=== PATIENT | male | born 1950 | race Caucasian/White ===

== ENCOUNTER → 2020-06-15 10:32 | Outpatient (CLI) | payer BC, MEDICARE, SELFPAY ==
--- NOTE | ~2020-06-15 | US_ITS ---
EXAMINATION: US aorta [facility] DATE: 06/15/2020 10:50 INDICATION: Abdominal aortic aneurysm screening TECHNIQUE: Grayscale, color Doppler, and pulsed Doppler images of the aorta and common iliac arteries were obtained. COMPARISON: None. FINDINGS: The proximal aorta measures 2.4 similar in maximal AP diameter. The mid aorta measures 1.9 cm. The di stal aorta measures 1.7 cm. The right common iliac artery measures 10 mm. The left common iliac arter y measures 12 mm. IMPRESSION: 1. Normal caliber abdominal aorta. Reviewed, dictated and finalized at location A. DIVER
== END ==
PROVIDERS: PCP Family Medicine; Visit Provider Family Medicine
DX: Z13.6 Encounter for screening for cardiovascular disorders (principal)
CPT/HCPCS: 76706

== ENCOUNTER 2020-11-11 10:42 | Outpatient (CLI) | payer BC, MEDICARE, SELFPAY ==
--- NOTE | ~2020-11-11 | XR_ITS ---
XR lumbar spine min 4V DATE: 11/11/2020 11:34 INDICATION: Arthropathic psoriasis TECHNIQUE: AP, lateral, bilateral oblique and coned lateral lumbosacral views COMPARISON: None FINDINGS: Diffuse osteopenia. Prominent anterior bridging osteophytes in the lower thoracic spine. Normal alignment of the lumbar vertebrae. No fracture or bone destruction or spondylolisthesis. Lumba r and lumbosacral spaces are well preserved. There is mild degenerative spurring of lumbar spine. Degenerative changes apophyseal joints with associated grade 1 anterolisthesis at L4-5. No spondyloly sis or spondylolisthesis is noted otherwise. The sacroiliac joints are unremarkable. IMPRESSION: Degenerative changes of the apophyseal joints with associated grade 1 anterolisthesis at L4-5 Diffuse osteopenia Mild degenerative spurring of the lumbar spine Reviewed, dictated and finalized at location A.
--- NOTE | ~2020-11-11 | XR_ITS ---
XR sacroiliac joints min 3V DATE: 11/11/2020 11:34 INDICATION: Arthropathic psoriasis TECHNIQUE: Frontal and bilateral oblique views COMPARISON: None FINDINGS: Diffuse osteopenia. The pubic symphysis and sacroiliac joints appear intact. No erosive change or ankylosis, fracture, di slocation or significant degenerative changes evident at the sacroiliac joints. IMPRESSION: Osteopenia; otherwise negative Reviewed, dictated and finalized at Location A. Reviewed, dictated and finalized at location A.
--- NOTE | ~2020-11-11 | XR_ITS ---
EXAMINATION: XR hand BI arthritis min 3V EXAM DATE: 11/11/2020 11:34 INDICATION: M19.90 - Unspecified osteoarthritis, unspecified site. TECHNIQUE: Right hand frontal, lateral and oblique projections obtained and reviewed. Left hand fron chris, lateral and oblique projections obtained and reviewed. Catchers projection of both hands. There is no prior study for comparison. FINDINGS: Right hand: There is moderate 1st carpometacarpal primary osteoarthritis. There are no bony erosions identified. There are no acute fractures identified. No radiopaque foreign bodies identified. The s oft tissue is unremarkable. Left hand: There is mild to moderate 1st carpometacarpal primary osteoarthritis. There are no bony er osions identified. There are no acute fractures identified. No radiopaque foreign bodies identified. The soft tissue is unremarkable. 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 Reviewed, dictated and finalized at location A.
== END 2020-11-11 10:43 ==
PROVIDERS: PCP Family Medicine; Visit Provider Internal Medicine
DX: L40.50 Arthropathic psoriasis, unspecified (principal); M19.90 Unspecified osteoarthritis, unspecified site; M85.88 Other specified disorders of bone density and structure, other site; M19.041 Primary osteoarthritis, right hand; M19.042 Primary osteoarthritis, left hand
CPT/HCPCS: 72110; 72202; 73130

== ENCOUNTER → 2021-07-20 11:50 | Outpatient (CLI) | payer MEDICARE, SELFPAY ==
--- NOTE | ~2021-07-20 | XR_ITS ---
XR lumbar spine min 4V DATE: 07/20/2021 12:22 INDICATION: Arthropathic psoriasis TECHNIQUE: AP, lateral, bilateral oblique views, coned lateral lumbosacral view COMPARISON: 11/11/2020 lumbar spine FINDINGS: Diffuse osteopenia. There is prominent apophyseal joint degenerative change, particularly at the apophyseal joints at L4- 5 and L5-S1, with associated stable grade 1 anterolisthesis at L4-5. No fracture or bone destruction is evident. No spondylolysis. The included lower thoracic and lumbar pedicles are intact. There is mild to moderate degenerative spurring of the lumbar spine. The sacroiliac joints are normal. IMPRESSION: Diffuse osteopenia. Mild to moderate degenerative change of the lumbar spine Reviewed, dictated and finalized at location A.
== END ==
PROVIDERS: Visit Provider Internal Medicine
DX: M47.817 Spondylosis without myelopathy or radiculopathy, lumbosacral region (principal); L40.50 Arthropathic psoriasis, unspecified
CPT/HCPCS: 72110

== ENCOUNTER 2022-06-29 13:46 | Outpatient (CLI) | payer MEDICARE, SELFPAY ==
--- NOTE | ~2022-06-29 | CT_ITS ---
EXAMINATION: CT lung screening DATE: 06/29/2022 14:02 INDICATION: lung ca screening TECHNIQUE: Computed tomography (CT) of the chest was performed without intravenous contrast. Addition al 3D reconstructions utilizing coronal maximum intensity projection (MIP) were performed. Automated exposure control and iterative reconstruction technique were employed. The dose-length product was 53 7.07 mGy-cm. COMPARISON: None FINDINGS: No pulmonary nodules, pneumonia, pulmonary edema or other pulmonary infiltrates. No pleural effusion. Heart size is normal. Atherosclerotic coronary artery calcifications and aortic valve calcific a marizol n. No pericardial effusion. Thoracic aorta is normal in caliber. No pathologically enlarged thoracic lymphadenopathy. Visualized upper abdomen is unremarkable. There are bridging osteophytes at multiple levels in the spine, consistent with diffuse idiopathic skeletal hyperostosis (DISH). IMPRESSION: 1. Lung-RADS category 1: Negative. Continue annual screening with noncontrast low-dose chest CT in 12 months. Reviewed, dictated and finalized at location A. [employer] IMPRESSION: 1. Lung-RADS category 1: Negative. Continue annual screening with noncontrast l ow-dose chest CT in 12 months.
== END 2022-06-29 13:47 | disposition home or self-care (01) ==
LOC: ANHIMG 13:48
PROVIDERS: PCP Family Medicine; Visit Provider Family Medicine
DX: Z12.2 Encounter for screening for malignant neoplasm of respiratory organs (principal); Z87.891 Personal history of nicotine dependence
CPT/HCPCS: 71271

== ENCOUNTER 2024-02-09 10:11 | Day surgery (SDC) | payer MEDICARE, SELFPAY ==
[2024-02-09] VITALS (10 sets, daily range): BP systolic 92–159; BP diastolic 52–79; PULSE 67–111; RESP 13–18; TEMP 36.3–36.7; O2SAT 98–100
--- NOTE | ~2024-02-09 | CT_ITS ---
CT of the Pelvis: Indication: Perianal abscess Technique: 2.5 mm axial scans were obtained through the pelvis following intravenous administration of 100 cc of Omnipaque 350. Dose reduction technique was used on this scan by utilizing automated exp osure control and iterative reconstruction technique. The dose-length product (DLP) was 704.13 mGy-cm . Findings: Urinary bladder unremarkable. Prostate gland is enlarged. No pelvic mass evident. No ascite s. No hernia identified. No lymphadenopathy identified. There is a 4.9 x 3.1 x 3.9 cm peripherally enhancing fluid collection superficially located at the le ft perianal region, compatible left-sided perianal abscess. Impression: 4.9 x 3.1 x 3.90 left perianal abscess. Reviewed, dictated and finalized at [facility]. Impression: 4.9 x 3.1 x 3.90 left perianal abscess.
--- NOTE | 2024-02-09 10:18 | ED.GENADULT ---
HPI - General Adult General Chief complaint: Skin/Abscess/Foreign Body Stated complaint: rectal abscess Time Seen by Provider: 02/09/24 10:17 Source: patient Mode of arrival: ambulatory Limitations: no limitations History of Present Illness HPI narrative: 73 years old white male drove himself to the emergency room complaining of perianal abscess for the last few days, causing pain and discomfort. He denies any fever, chills, nausea, vomiting, abdominal pain. Patient had similar symptoms 10 years ago, required incision and drainage and packing. Patient is telling me that he been draining from the same spot at lease every 2 years for few days then spontaneously improved. And was told this is normal. History of hyperlipidemia, he does not smoke or drink or use drugs, he does not take anti-platelet or anticoagulant medication. Related Data Home Medications Medication Instructions Recorded Confirmed omeprazole magnesium 20 mg 20 mg PO DAILY 06/01/19 06/19/23 tablet,delayed release (Prilosec OTC) tirzepatide (weight loss) 2.5 2.5 mg subcut WEEKLY 06/19/23 06/19/23 mg/0.5 mL subcutaneous pen injector (Zepbound) Allergies Allergy/AdvReac Type Severity Reaction Status Date / Time No Known Allergies Allergy Verified 06/19/23 09:20 Review of Systems Review of Systems: All systems reviewed & are unremarkable except as noted in HPI and below PMFSH Past Medical History Medical History Encounter for screening for other viral diseases GERD (gastroesophageal reflux disease) HLD (hyperlipidemia) IFG (impaired fasting glucose) Psoriatic arthritis (~2015) Scalp psoriasis (~2015) Family History Family History Father Bladder cancer Mother Hypertension Social History Social History Smoking status: Never smoker Tobacco type: e-cigarettes/vaping Smoking end date: 12/21/18 Alcohol intake: current Drinks per week: 4 Substance use: never Substance use type: does not use Living arrangements: with family Occupation/Education: retired Gender identity (if verbalized by the patient): Male Sexual Orientation (if Verbalized by the Patient): Straight or Heterosexual Exam Narrative: General appearance: Well-developed, well-nourished Skin: Normal color Chest and respiratory: Airway patent, no respiratory distress, no accessory muscle use Heart: Regular rate/rhythm Abdomen: Soft, nontender, no organomegaly, quiet bowel sounds Large mass at the perianal area, positive fluctuation, erythema, tenderness Neurologic: Alert and oriented ?3, MANAGER PHOTO is normal as tested, no gross motor deficit Course Consultations Consultation #1: DR BESS PATIENT TO GO TO OR FOR I AND D Date: 02/09/24 Time: 12:55 Vital Signs Vital signs: Vital Signs Temperature 36.7 C 02/09/24 10:40 Pulse Rate 111 H 02/09/24 10:40 Respiratory Rate 18 02/09/24 10:40 Blood Pressure 107/67 02/09/24 10:40 Pulse Oximetry 100 02/09/24 10:40 Oxygen Delivery Room Air 02/09/24 10:40 Temperature 36.7 C 02/09/24 10:40 Pulse Rate 93 02/09/24 12:44 Respiratory Rate 18 02/09/24 12:44 Blood Pressure 118/68 02/09/24 12:44 Pulse Oximetry 100 02/09/24 12:44 Oxygen Delivery Room Air 02/09/24 10:40 Medical Decision Making [facility] Narrative Medical decision making narrative: patient presents with perianal abscess Vital signs Showing heart rate of 111 physical examination show perianal mass, Differential diagnosis include abscess, cyst, tumor Blood workup s
[2024-02-09 10:38] LABS: Basophils Percent Auto 0.3 % (0.2-1.2); Eosinophils Absolute Auto 0.1 K/mm3 (0-0.3); Eosinophils Percent Auto 0.6 % (0-4.4); Hematocrit 37.3 % (42.0-52.0); Hemoglobin 12.8 g/dL (14.0-18.0); Immature Granulocyte Absolute 0.03 K/mm3 (0.00-0.031); Immature Granulocyte Percent A 0.3 % (0-0.5); Lymphocytes Absolute Auto 1.85 K/mm3 (0.9-3.2); Lymphocytes Percent Auto 19.7 % (18.3-44.2); Mean Corpuscular HGB Conc 34.3 g/dl (32-36); Mean Corpuscular Hemoglobin 31.4 pg (26-34); Mean Corpuscular Volume 91.4 fl (80-100); Mean Platelet Volume 11.5 fl (7.4-10.4); Monocytes Absolute Auto 1.1 K/mm3 (0.1-0.6); Monocytes Percent Auto 11.8 % (2.6-8.5); Neutrophils Absolute Auto 6.3 K/mm3 (1.3-6.7); Neutrophils Percent Auto 67.3 % (45.5-73.1); Platelet Count Result 292 k/mm3 (150-375); Red Blood Count 4.08 M/mm3 (4.6-6.20); Red Cell Distribution Width 13.4 % (11.5-14.5); White Blood Count 9.4 K/mm3 (4.5-10.0)
[2024-02-09] MEDS: PIPERACILLN/TAZ 3.375GM/NS50ML 3.375 GM/50 ML BAG IVPB (10:43)
[2024-02-09] MEDS: SODIUM CHLORIDE 0.9% IV 1,000 ML 999 ML IV CONT (10:44)
[2024-02-09 11:15] LABS: Alanine Aminotransferase 16 U/L (6-50); Albumin Level 4.2 g/dL (3.5-5.1); Alkaline Phosphatase 83 U/L (38-126); Anion Gap 9 mmol/L (4-12); Aspartate Amino Transferase 25 U/L (17-59); Bilirubin,Total 1.3 mg/dL (0.2-1.3); Blood Urea Nitrogen 20 mg/dL (9-20); Calcium 9.6 mg/dL (8.4-10.2); Carbon Dioxide 26 mmol/L (22-30); Chloride 101 mmol/L (98-107); Estimated CRCL calculation 61 ml/min; Estimated Glomerular Filt Rate > 60; Glucose 104 mg/dL (65-110); Potassium 4.8 mmol/L (3.4-5.0); Sodium 136 mmol/L (137-145)
[2024-02-09] MEDS: ONDANSETRON INJ 4 MG/2 ML VIAL IV PUSH (12:43)
[2024-02-09] MEDS: MORPHINE SULFATE (*CRX) 4 MG/ML INJ IV PUSH (12:44)
--- NOTE | 2024-02-09 13:09 | PM.SD2 ---
Same Day Admit/Disch: HPI History of Present Illness Chief complaint: Perirectal abscess with fistula Narrative: Sanjay King is a 73 year old male who noticed a lump in the perianal area while showering about 3 days ago. It was not bothersome and he assumed it would go away. He was sitting at a soccer game yesterday and did notice more soreness. Then early this morning he noted it enlarged significantly and abruptly with increasing pain. There was no drainage. There were no fever or chills. He has a history of a perirectal abscess which was incised and drained in an emergency room about 8 years ago. He recalls it was packed and eventually went on to heal. He did notice that there was been some clear to cloudy drainage from a small area on the buttocks skin near the rectum may be once every couple of years since then. He was seen in the emergency room and has a large left anterior recurrent perirectal abscess. With his history, it is highly likely he does have a fistula in ANO as the cause. He is taken to surgery now for incision and drainage and possible anal fistulotomy. [facility] Past Medical History Medical History Encounter for screening for other viral diseases GERD (gastroesophageal reflux disease) HLD (hyperlipidemia) IFG (impaired fasting glucose) Psoriatic arthritis (~2015) Scalp psoriasis (~2015) Family History Family History Father Bladder cancer Mother Hypertension Social History Social History Smoking status: Never smoker Tobacco type: e-cigarettes/vaping Smoking end date: 12/21/18 Alcohol intake: current Drinks per week: 4 Substance use: never Substance use type: does not use Living arrangements: with family Occupation/Education: retired Gender identity (if verbalized by the patient): Male Sexual Orientation (if Verbalized by the Patient): Straight or Heterosexual Same Day Admit/Disch: Med Pre-admit Medications Home Medications Medication Instructions Recorded Confirmed Type omeprazole magnesium 20 mg 20 mg PO DAILY 06/01/19 06/19/23 History tablet,delayed release (Prilosec OTC) triamcinolone acetonide 0.025 % 1 applic topical DAILY PRN apply 06/04/22 06/19/23 Rx topical cream to psoriatic patches as needed #80 grams clobetasol 0.05 % scalp solution 1 applic topical DAILY PRN apply 09/24/22 06/19/23 Rx to scalp daily as needed #50 mL tirzepatide (weight loss) 15 15 mg (0.5 mL) subcut WEEKLY #2 mL 04/30/23 06/19/23 Rx mg/0.5 mL subcutaneous pen injector tirzepatide (weight loss) 2.5 2.5 mg subcut WEEKLY 06/19/23 06/19/23 History mg/0.5 mL subcutaneous pen injector (Zepbound) tirzepatide (weight loss) 5 mg/0.5 5 mg (0.5 mL) subcut WEEKLY #2 mL 06/19/23 06/19/23 Rx mL subcutaneous pen injector (Zepbound) methylprednisolone 4 mg tablets in See Rx Instructions PO PER PKG DIR 12/20/23 Rx a dose pack (Medrol (Simon)) #21 ea atorvastatin 20 mg tablet (Lipitor) 20 mg PO QHS #90 tabs 01/17/24 Rx ibuprofen 600 mg tablet 600 mg PO Q6H PRN pain #14 tabs 02/09/24 Rx oxycodone-acetaminophen 5 mg-325 0.5 - 1 tablet PO Q6H PRN pain #20 02/09/24 Rx mg tablet tabs Review of Systems Review of Systems All systems reviewed & are unremarkable except as noted in HPI and below (HPI) Constitutional Constitutional: Reports as per HPI, Denies chills and Denies night sweats Integumentary/Breasts Comments: History of psoriatic arthritis Endocrine Comments: takes tirzepatide for weight loss. Exam Const: General: comfortable, no acute distress, alert and awake HENMT: Head: normocephalic and atraumatic Mouth: Yes Normal oral and palatal mucosa present Eyes: Conjunctivae: conjunctivae normal Pupils: Equal, round and reactive pupils present EOM: EOMs intact bilaterally Nec
--- NOTE | 2024-02-09 13:22 | WPDHPUPDATE1 ---
History and Physical Update Update Date/Time: 02/09/24 13:22 History and Physical has been reviewed, including an updated exam of the patient. There are NO changes in the patient's condition. Risks, benefits, and alternatives have been discussed and questions answered. Patient agrees to proceed with procedure.
--- NOTE | 2024-02-09 14:00 | WPDANESEPP ---
Anes - Eval Pre Procedure Procedure: Operation Date: 02/09/24 13:30 Proposed Procedures p I&D Roz-Rectal Abscess - Lion Judd MD Date/Time: 02/09/24 14:00 Pre Op Diagnosis: Perirectal abscess with fistula Patient Data Age: 73 Gender: M Height: 1.88 m Weight: 91 kg Last Vital Signs Temp 36.7 C 02/09/24 10:40 Pulse 93 02/09/24 12:44 Resp 18 02/09/24 12:44 BP 118/68 02/09/24 12:44 Pulse Ox 100 02/09/24 12:44 O2 Del Method Room Air 02/09/24 10:40 Allergies Allergy/AdvReac Type Severity Reaction Status Date / Time No Known Allergies Allergy Verified 06/19/23 09:20 Home Medications Medication Instructions Recorded Confirmed Type omeprazole magnesium 20 mg 20 mg PO DAILY 06/01/19 06/19/23 History tablet,delayed release (Prilosec OTC) triamcinolone acetonide 0.025 % 1 applic topical DAILY PRN apply 06/04/22 06/19/23 Rx topical cream to psoriatic patches as needed #80 grams clobetasol 0.05 % scalp solution 1 applic topical DAILY PRN apply 09/24/22 06/19/23 Rx to scalp daily as needed #50 mL tirzepatide (weight loss) 15 15 mg (0.5 mL) subcut WEEKLY #2 mL 04/30/23 06/19/23 Rx mg/0.5 mL subcutaneous pen injector tirzepatide (weight loss) 2.5 2.5 mg subcut WEEKLY 06/19/23 06/19/23 History mg/0.5 mL subcutaneous pen injector (Zepbound) tirzepatide (weight loss) 5 mg/0.5 5 mg (0.5 mL) subcut WEEKLY #2 mL 06/19/23 06/19/23 Rx mL subcutaneous pen injector (Zepbound) methylprednisolone 4 mg tablets in See Rx Instructions PO PER PKG DIR 12/20/23 Rx a dose pack (Medrol (Simon)) #21 ea atorvastatin 20 mg tablet (Lipitor) 20 mg PO QHS #90 tabs 01/17/24 Rx Laboratory Tests 02/09/24 02/09/24 10:32 10:57 WBC 9.4 K/mm3 (4.5-10.0) RBC 4.08 L M/mm3 (4.6-6.20) Hgb 12.8 L g/dL (14.0-18.0) Hct 37.3 L % (42.0-52.0) MCV 91.4 fl (80-100) MCH 31.4 pg (26-34) MCHC 34.3 g/dl (32-36) RDW 13.4 % (11.5-14.5) Plt Count 292 k/mm3 (150-375) MPV 11.5 H fl (7.4-10.4) Immature Gran % (Auto) 0.3 % (0-0.5) Neut % (Auto) 67.3 % (45.5-73.1) Lymph % (Auto) 19.7 % (18.3-44.2) [place] % (Auto) 11.8 H % (2.6-8.5) Eos % (Auto) 0.6 % (0-4.4) Baso % (Auto) 0.3 % (0.2-1.2) Lymph # (Auto) 1.85 K/mm3 (0.9-3.2) [place] # (Auto) 1.1 H K/mm3 (0.1-0.6) Eos # (Auto) 0.1 K/mm3 (0-0.3) Baso # (Auto) 0.0 K/mm3 (0.0-0.1) Abs Immat Gran (auto) 0.03 K/mm3 (0.00-0.031) Absolute Neuts (auto) 6.3 K/mm3 (1.3-6.7) Absolute Nucleated RBC 0.000 K/mm3 (0.0-0.012) Nucleated RBC % 0.0 % (0.0-0.2) PT 13.0 Seconds (11.1-14.7) INR 1.0 Sodium 136 L mmol/L (137-145) Potassium 4.8 mmol/L (3.4-5.0) Chloride 101 mmol/L (98-107) Carbon Dioxide 26 mmol/L (22-30) Anion Gap 9 mmol/L (4-12) BUN 20 mg/dL (9-20) Creatinine 1.10 mg/dL (0.7-1.3) Estim Creat Clear Calc 61 ml/min Estimated GFR > 60 (59 - ) Glucose 104 mg/dL (65-110) Calcium 9.6 mg/dL (8.4-10.2) Total Bilirubin 1.3 mg/dL (0.2-1.3) AST 25 U/L (17-59) ALT 16 U/L (6-50) Alkaline Phosphatase 83 U/L (38-126) Total Protein 8.0 g/dL (6.3-8.2) Albumin 4.2 g/dL (3.5-5.1) Patient hx anesthesia problems: none Family hx anesthesia problems: none Results Review: All pre-operative results and documents have been reviewed as part of the pre-operative evaluation. [facility] Past Medical History Medical History Encounter for screening for other viral diseases GERD (gastroesophageal reflux disease) HLD (hyperlipidemia) IFG (impaired fasting glucose) Psoriatic arthritis (~2015) Scalp psoriasis (~2015) Family History Family Histo
--- NOTE | 2024-02-09 14:02 | P.PNAN_ITS ---
Anes - Eval Final PreProcedure Day of Procedure 02/09/24 14:02 Patient weight: overweight Heart: regular rate and rhythm Lungs: clear to auscultation Airway: Mallampati scale class III Neurological: alert and oriented Last oral intake: >/= 8 hours ASA classification: III Emergent: yes Anesthetic plan: proceed Anesthesia type and monitoring: general ETT and standard monitoring Results Review: All pre-operative results and documents have been reviewed as part of the pre- operative evaluation. Informed Consent: The patient's anesthetic plan and its attendant risks and benefits were discussed with the patient/family/POA. Questions were solicited and answers provided to the satisfaction of the patient/family/POA.
[2024-02-09] MEDS: LACTATED RINGERS 1,000 ML 30 ML IV CONT (14:58)
--- NOTE | 2024-02-09 15:40 | P.OP_ITS ---
Procedure Note - Detailed Date of Procedure 02/09/24 Pre-op Diagnosis Perirectal abscess with fistula Post-op Diagnosis Same Procedure Performed Incision and drainage of left anterior quadrant perirectal abscess, placement of seton Surgeon Lion Judd MD Flight Attendant Tere Morales [facility] Anesthesia General Indications Patient had a large perirectal abscess that was incised and drained about 10 years ago. He has had 0 purulent drainage once every year or 2 from the area of the scar on his buttocks since that time. Early this morning he had pain and greatly increased swelling in the same area as the original perirectal abscess occurred. There is scar tissue from the incision and drainage of the original abscess which seems to verify it is in the same position. It is suspected that he has a fistula in ANO as well as a recurrent perirectal abscess. He is taken to surgery now for incision and drainage of the perirectal abscess and possibly an anal fistulotomy. Findings This was a large abscess. It tracked to the dentate line it in the anterior midline where an internal opening was noted. There was a lot of heavy scar tissue between the incision for abscess drainage and the internal opening. It was difficult to ascertain in the acute setting how much sphincter muscle was involved. Rather than do primary fistulotomy, I placed a seton with plans to perform the fistulotomy later. Description of Procedure Patient was taken to surgery and induced into general anesthesia. He was placed in prone nakul-knife position. The buttocks were taped apart. Prep and drape was carried out. I placed a Hill-Navarro anoscope in the rectum and then applied some pressure to the fluctuant areas of the abscess. I could not demonstrate any purulent fluid coming from an opening at the dentate line. I then made a cruciate incision over the most fluctuant area of the abscess. Purulent material readily drained. I opened this a bit further and then was able to suction out the interior of the abscess. Once the purulent fluid had been suctioned away, I used a rectal probe and found that the abscess did communicate with an internal opening in the midline. I then used a curved clamp and passed a red vessel loop from the internal opening out the cruciate incision. I was able to place my finger in the abscess cavity and palpate the inside of the abscess. There was a lot of scar tissue between the skin and the internal opening. I was concerned that fistulotomy at this point may cause more sphincter damage then wanted. I went ahead and tied the red vessel loop to itself to provide a loose in napaimute mint of the fistula. The abscess wound was pretty dry at this point but I did go ahead and loosely pack it with 1 in iodoform Nu Gauze. The rectal area was then dressed was Xeroform gauze, multiple fluffs, and Medipore tape. The patient was returned to a supine position, awakened, and taken to recovery in good condition. Sponge and needle counts were correct x2. Implants Red vessel loop used as a seton for the fistula tract Estimated Blood Loss -10 Drains Yes (Seton) Packing Yes (Abscess packed with 1 in iodoform Nu Gauze) Pathology None sent Complications None Condition Stable Disposition PACU [facility] Billing Surgery - Charge Forward: Surgery Billing (Incision and drainage of perirectal abscess, placement of seton)
[2024-02-09] MEDS: oxyCODONE HCL (*CRX) 5 MG TAB IR PO (15:52)
== END 2024-02-09 16:40 | disposition home or self-care (01) ==
LOC: ANHED 12:55 → ANHSURGERY 12:59
PROVIDERS: Emergency Provider Emergency Medicine; PCP Family Medicine; Visit Provider Surgery
PROC: (CPT 46040; principal; 2024-02-09 13:30)
DX: K61.0 Anal abscess (principal); G89.18 Other acute postprocedural pain; K21.9 Gastro-esophageal reflux disease without esophagitis; E78.5 Hyperlipidemia, unspecified; Z79.85 Long-term (current) use of injectable non-insulin antidiabetic drugs; Z87.891 Personal history of nicotine dependence; Z80.52 Family history of malignant neoplasm of bladder
CPT/HCPCS: 46020; 36415; 72193; 80053; 85025; 85610; 96365; 96375; 99285; A9270; J0330; J1100; J2270; J2405; J2543; J2704; J3010; J7030; J7120; Q9967

== ENCOUNTER 2024-03-18 09:56 | Outpatient (CLI) | payer MEDICARE, SELFPAY ==
--- NOTE | 2024-03-18 10:07 | ECG_ITS ---
Test Date: 2024-03-18 10:21:17 Measurements Intervals [place] Rate: 83 P: 49 NH: 166 QRS: 22 QRSD: 90 T: 43 QT: 341 QTc: 402 Interpretive Statements SINUS RHYTHM BASELINE ARTIFACT- I, II, III, AVR, AVL, AVF NORMAL ECG No previous ECG available for comparison Electronically Signed On 03-18-2024 10:56:26 [employer] TECHNICIAN by Chandan Erazo D.O.
== END 2024-03-18 09:57 | disposition home or self-care (01) ==
LOC: ANHSURGERY 10:00
PROVIDERS: PCP Family Medicine; Visit Provider Surgery
DX: Z01.818 Encounter for other preprocedural examination (principal); E78.5 Hyperlipidemia, unspecified
CPT/HCPCS: 93005

== ENCOUNTER 2024-03-30 01:33 | Day surgery (SDC) | payer MEDICARE, SELFPAY ==
[2024-03-17 12:19] VITALS: BMI 28.8
--- NOTE | 2024-03-17 12:50 | PC.NURSE ---
Report to the Outpatient Waiting Room, entrance under the green pavilion located off [facility], at time __10:00AM on date ___03/30/24____. Planned Procedure Time: __12:00PM .? Time changes happen often and if your time is changed the preop area will call you the afternoon before. - You and your visitor will be asked to self-screen and do not enter if you have any COVID symptoms. Please call surgeon if you need to reschedule. - A mask is optional within the hospital at this time. CLEAR LIQUIDS DAY BEFORE SURGERY PER DR BESS. Patients may have clear liquids (water, carbonated beverages, clear teas, apple juice) until 3 hours prior to surgery with a maximum of 20 ounces-PER ANESTHESIA. - No food from midnight until time of surgery and no smoking. This includes no chewing gum, candy or mints. Take only the following medications with a SIP of water on the morning of surgery: NONE DO NOT STOP ANY OF YOUR OTHER PRESCRIPTION MEDICATIONS PRIOR TO SURGERY EXCEPT THE FOLLOWING Medications to discontinue per physician ____PER ANESTHESIA: HOLD ALL VITAMINS/SUPPLEMENTS 3 DAYS PRE-OP- LAST DOSE 03/26/24. HOLD ZEPBOUND 10 DAYS PRE-OP- LAST DOSE 03/19/24(HOLD Saturday03/24/24 DOSE)___ Please no make-up, nail estonian, hairspray, perfume, deodorant, or body powder the day of surgery.? No jewelry (including any body piercings) or valuables the day of surgery, leave them at home.? Please take a shower or bath the night before, or the morning of, surgery with an antibacterial soap.? Wear comfortable, loose fitting clothing.? - Jewelry must be removed prior to entering the operating room.? Rings and piercings that are not removed may be cut off. - The hospital will not accept responsibility for valuables.? - Please leave all valuables, including medications, at home the day of surgery. If you are going home after surgery, a licensed coach tour driver must drive you home.? - NO public transportation without another adult if you receive anesthesia. - We recommend that an adult stay with you for 24 hours following discharge. - We also recommend that you do not drive, make important decision, drink alcoholic beverages, or take any drugs that were not prescribed by your health care provider for at least 24 hours after your discharge time. Follow any additional instructions given to you from your surgeon. PER DR BESS: FLEETS ENEMA NIGHT BEFORE AND MORNING OF SURGERY TAKE DULCOLAX 5MG NIGHT BEFORE SURGERY. Telephone instructions given to ____PATIENT and asked if any additional questions and then verbalized understanding. Patient advised to call surgeon office or pre surgery nurse liaison [phone] if any additional questions.
[2024-03-30] VITALS (8 sets, daily range): BP systolic 113–156; BP diastolic 50–82; PULSE 63–79; RESP 10–17; TEMP 36.2–36.6; O2SAT 100
--- NOTE | 2024-03-30 07:57 | P.SS_ITS ---
Same Day Admit/Disch: HPI History of Present Illness Chief complaint: Fistula in Ano Narrative: Sanjay King is a 73 year old male who presented February 08 with a large perirectal abscess. 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 The abscess was drained in January and a seton was placed. Patient is taken back to surgery now that the acute infection has resolved for removal of the seton as well as anal fistulotomy. [facility] Past Medical History Medical History (Updated 03/30/24 @ 14:30 by Lion Judd MD) Encounter for screening for other viral diseases GERD (gastroesophageal reflux disease) HLD (hyperlipidemia) IFG (impaired fasting glucose) Overweight Psoriatic arthritis (~2015) Scalp psoriasis (~2015) Surgical History Surgical History History of incision and drainage 02/09/2024 - incision and drainage tiffanie-rectal abscess with placement Seton Family History Family History Father Bladder cancer Mother Hypertension Social History Social History Smoking packs per day: 0.25 Smoking cigarettes per day: 5.0 Years smoked: 40 Smoking pack-years: 10.00 Smoking status: Former smoker Tobacco type: cigarettes Smoking end date: 10/20/17 Alcohol intake: current Drinks per week: 4 Substance use: never Substance use type: does not use Do You Feel Safe in your Home?: Yes Lack of Transportation: No Lack of Food: Never True Current Housing: I Have Housing Concerned About Future Housing: No Difficulty Paying Gas/Electric Bills: No Difficulty Paying for Meds: No Currently Unemployed: No Education: Bachelor's Degree Difficulty w/ Childcare or Family Care: No Living arrangements: with family Additional living arrangements comments: [employer] Occupation/Education: retired Gender identity (if verbalized by the patient): Male Sexual Orientation (if Verbalized by the Patient): Straight or Heterosexual Spiritual care concerns: No Same Day Admit/Disch: Med Pre-admit Medications Home Medications Medication Instructions Recorded Confirmed Type omeprazole magnesium 20 mg 20 mg PO DAILY 06/01/19 03/17/24 History tablet,delayed release (Prilosec OTC) triamcinolone acetonide 0.025 % 1 applic topical DAILY PRN apply 06/04/22 03/17/24 Rx topical cream to psoriatic patches as needed #80 grams clobetasol 0.05 % scalp solution 1 applic topical DAILY PRN apply 09/24/22 03/17/24 Rx to scalp daily as needed #50 mL tirzepatide (weight loss) 15 15 mg (0.5 mL) subcut WEEKLY #2 mL 04/30/23 03/17/24 Rx mg/0.5 mL subcutaneous pen injector atorvastatin 20 mg tablet (Lipitor) 20 mg PO QHS #90 tabs 01/17/24 03/17/24 Rx docusate sodium 100 mg capsule 200 mg PO DAILY 03/17/24 03/17/24 History (Dulcolax Stool Softener (docusate)) dupilumab 300 mg/2 mL subcutaneous 600 mg subcut 2XW 03/17/24 03/17/24 History pen injector (Dupixent) finasteride 1 mg tablet 1 mg PO DAILY 03/17/24 03/17/24 History magnesium gluconate 500 mg tablet 300 mg PO DAILY 03/17/24 03/17/24 History naproxen sodium 220 mg capsule 660 mg PO Q12H PRN Pain 03/17/24 03/17/24 History (Aleve) vitamin B complex 1 cap PO DAILY 03/17/24 03/17/24 History ibuprofen 600 mg tablet 600 mg PO Q6H PRN pain #14 tabs 03/30/24 Rx oxycodone-acetaminophen 5 mg-325 1 - 2 tablet PO Q6H PRN pain #20 03/30/24 Rx mg tablet (Percocet) tabs Review of Systems Review of Systems All systems reviewed & are unremarkable except as noted in HPI and below (HPI) Exam Const: General: comfortable, no acute distress, alert and awake HENMT: Head: normocephalic and atraumatic Mouth: Yes Normal oral and palatal mucosa present Eyes: Conjunctivae: conjunctivae normal Pupils: Equal, round and reactive pupils present EOM: EOMs intact bilaterally Neck: Neck: normal visual inspection, no lymphadenopathy and nontender Resp: Effort & Inspection: normal respiratory effort Auscultation: clear to auscultation bilaterally Cardio: Rate: regular rate Rhythm: regular rhythm Heart sounds: no gallops, no murmurs and no rubs GI: Inspection: non-distended GI Palp: Yes Soft to palpation, No Tenderness to palpation present (GI), No Hepatomegaly present and No Splenomegaly present Rectal Exam: normal sphincter tone, No abscess, Fistula present (GI) (Left anterior quadrant, seton present) and No buttock abscess Skin: Lesions: no lesions Rashes: no rashes Neuro: General: no focal motor deficits and CN's II-XI intact bilaterally Cranial nerves: Yes Equal, round and reactive pupils present, Yes Bilaterally intact EOM present, Yes facial symmetry and Yes Midline tongue present Speech: normal speech Motor exam (neuro): 5/5 motor strength present throughout and Motor abnormalities not present Extrem: General: no clubbing, cyanosis or edema and edema Psych: Affect: normal affect Thought process: Normal thought process present Insight: Good insight present (Psych) DS: Summary Time Spent with Patient Time attestation: Total time spent providing and/or coordinating discharge services: DS: Admitting Diagnosis Discharge Date 03/30/2024 Admitting Diagnosis * 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 The procedure, risks, alternatives, benefits have been explained. All questions were answered. He understands and agrees to go ahead. * Psoriatic arthritis * Impaired fasting glucose * GERD DS: Discharge Diagnosis Discharge Diagnosis (1) Anorectal fistula, complex, persistent: Code(s): K60.522 - Anorectal fistula, complex, persistent Status: Chronic Assessment and Plan: Seton removed, fistulotomy performed 03/30/[address] Judd Discharge Plan Discharge Patient Disposition: Home, Self-Care Discharge Instructions: Discharge Instructions for Anorectal Surgery Dr. Judd 1. May discharge from Outpatient Surgery area or Surgical Floor when stable per protocol. 2. Activity: Remove dressing and start Sitz baths in a.m. following surgery. Once at home, all patients should take 10-20 minute Sitz baths at least two times per day and as needed after each bowel movement. Place 4 x 4 gauze over rectal wound after each Sitz bath. Change gauze daily and as needed. Keep gauze over wound at all times. Rest around the house for the next 1-2 days, taking frequent walks. No driving for 2-3 days or while taking narcotic pain medi cations. 3. Diet: Regular diet with 6-8 glasses of water per day. Eat plenty of fruits and vegetables. 4. Medications: ? Resume all home medications. ? Metamucil 1 tablespoon PO twice a day ? Mineral Oil 1 tablespoon PO twice a day ? Percocet 5/325 1 PO q 4 hours as needed for moderate pain. ? Percocet 5/325 2 PO q 6 hours as needed for severe pain. ? Ibuprofen 600 mg PO q 6 hours as needed for moderate pain. ? Acetaminophen 650 mg PO q 6 hours as needed for mild pain. Prescriptions for the above medications will be provided at the time of discharge or they can be bought [id number]. 5. Follow-up: call office for appointment in 10-14 days or as previously scheduled. 6. Call office if: ? Sudden increase in pain, swelling or incisional drainage or bleeding occurs. ? Fever > 101 degrees F. ? Nausea and vomiting occur. ? Inability to urinate. 7. Other orders: Do not take Aleve while taking ibuprofen Stand Alone Forms: General Discharge Instructions Follow-up/Referrals: Lion Judd MD [Physician] - 3 Weeks (Call for appointment if an appointment is not already scheduled) Discharge Medications: New oxycodone-acetaminophen [Percocet] 5-325 mg tablet 1 - 2 tablet PO Q6H PRN (Reason: pain) Qty: 20 0RF ibuprofen 600 mg tablet 600 mg PO Q6H PRN (Reason: pain) Qty: 14 0RF Continued clobetasol 0.05 % solution 1 applic topical DAILY PRN (Reason: apply to scalp daily as needed) Qty: 50 4RF Prilosec OTC 20 mg tablet,delayed release (DR/EC) 20 mg PO DAILY triamcinolone acetonide 0.025 % cream 1 applic topical DAILY PRN (Reason: apply to psoriatic patches as needed) Qty: 80 0RF Dupixent Pen 300 mg/2 mL Pen Injector 600 mg SUBCUT 2XW Rx Instructions: as a single dose magnesium gluconate 500 mg Tablet 300 mg PO DAILY vitamin B complex Capsule 1 cap PO DAILY docusate sodium [Dulcolax Stool Softener (dss)] 100 mg Capsule 200 mg PO DAILY finasteride 1 mg tablet 1 mg PO DAILY tirzepatide (weight loss) 15 mg/0.5 mL pen injector 15 mg subcut WEEKLY Qty: 2 3RF Patient Comments: TUESDAYS atorvastatin [Lipitor] 20 mg tablet 20 mg PO QHS Qty: 90 2RF Held naproxen sodium [Aleve] 220 mg Capsule 660 mg PO Q12H PRN (Reason: Pain) Hold Instructions: Resume on 04/06/24. Resume when no longer taking ibuprofen Discontinued ibuprofen 600 mg tablet 600 mg PO Q6H PRN (Reason: pain) Qty: 14 0RF
--- NOTE | 2024-03-30 08:04 | WPDHPUPDATE1 ---
History and Physical Update Update Date/Time: 03/30/24 08:04 History and Physical has been reviewed, including an updated exam of the patient. There are NO changes in the patient's condition. Risks, benefits, and alternatives have been discussed and questions answered. Patient agrees to proceed with procedure.
--- NOTE | 2024-03-30 10:51 | P.PNAN_ITS ---
Anes - Initial Pre Proc Eval Procedure: Operation Date: 03/30/24 12:00 Proposed Procedures p Removal Seton Anal Fistulotomy - Lion Judd MD Date/Time: 03/30/24 10:51 Surgeon: Lion Judd MD Pre Op Diagnosis: Fistula in Ano Patient Data Age: 73 Gender: M Height: 1.88 m Weight: 102 kg Allergies Allergy/AdvReac Type Severity Reaction Status Date / Time No Known Allergies Allergy Verified 03/17/24 12:09 Home Medications Medication Instructions Recorded Confirmed Type omeprazole magnesium 20 mg 20 mg PO DAILY 06/01/19 03/17/24 History tablet,delayed release (Prilosec OTC) triamcinolone acetonide 0.025 % 1 applic topical DAILY PRN apply 06/04/22 03/17/24 Rx topical cream to psoriatic patches as needed #80 grams clobetasol 0.05 % scalp solution 1 applic topical DAILY PRN apply 09/24/22 03/17/24 Rx to scalp daily as needed #50 mL tirzepatide (weight loss) 15 15 mg (0.5 mL) subcut WEEKLY #2 mL 04/30/23 03/17/24 Rx mg/0.5 mL subcutaneous pen injector atorvastatin 20 mg tablet (Lipitor) 20 mg PO QHS #90 tabs 01/17/24 03/17/24 Rx ibuprofen 600 mg tablet 600 mg PO Q6H PRN pain #14 tabs 02/09/24 03/17/24 Rx docusate sodium 100 mg capsule 200 mg PO DAILY 03/17/24 03/17/24 History (Dulcolax Stool Softener (docusate)) dupilumab 300 mg/2 mL subcutaneous 600 mg subcut 2XW 03/17/24 03/17/24 History pen injector (Dupixent) finasteride 1 mg tablet 1 mg PO DAILY 03/17/24 03/17/24 History magnesium gluconate 500 mg tablet 300 mg PO DAILY 03/17/24 03/17/24 History naproxen sodium 220 mg capsule 660 mg PO Q12H PRN Pain 03/17/24 03/17/24 History (Aleve) vitamin B complex 1 cap PO DAILY 03/17/24 03/17/24 History Patient hx anesthesia problems: none Family hx anesthesia problems: none Results Review: All pre-operative results and documents have been reviewed as part of the pre- operative evaluation. [facility]LY [facility], [facility] Past Medical History Medical History (Updated 03/30/24 @ 10:52 by Rajinder Bass MD) Encounter for screening for other viral diseases GERD (gastroesophageal reflux disease) HLD (hyperlipidemia) IFG (impaired fasting glucose) Overweight Psoriatic arthritis (~2016) Scalp psoriasis (~2016) Surgical History Surgical History History of incision and drainage 02/09/2024 - incision and drainage tiffanie-rectal abscess with placement Seton Family History Family History Father Bladder cancer Mother Hypertension Social History Social History Smoking packs per day: 0.25 Smoking cigarettes per day: 5.0 Years smoked: 40 Smoking pack-years: 10.00 Smoking status: Former smoker Tobacco type: cigarettes Smoking end date: 10/20/17 Alcohol intake: current Drinks per week: 4 Substance use: never Substance use type: does not use Do You Feel Safe in your Home?: Yes Lack of Transportation: No Lack of Food: Never True Current Housing: I Have Housing Concerned About Future Housing: No Difficulty Paying Gas/Electric Bills: No Difficulty Paying for Meds: No Currently Unemployed: No Education: Bachelor's Degree Difficulty w/ Childcare or Family Care: No Living arrangements: with family Additional living arrangements comments: [employer] Occupation/Education: retired Gender identity (if verbalized by the patient): Male Sexual Orientation (if Verbalized by the Patient): Straight or Heterosexual Spiritual care concerns: No Anes - Eval Final PreProcedure Day of Procedure 03/30/24 10:51 Patient weight: overweight Heart: regular rate and rhythm Lungs: clear to auscultation Airway: Mallampati scale class II Neurological: alert and oriented Last oral intake: >/= 8 hours ASA classification: III Emergent: no Anesthetic plan: proceed Anesthesia type and monitoring: general ETT and standard monitoring Results Review: All pre-operative results and documents have been reviewed as part of the pre- operative evaluation. Informed Consent: The patient's anesthetic plan and its attendant risks and benefits were discussed with the patient/family/POA. Questions were solicited and answers provided to the satisfaction of the patient/family/POA.
[2024-03-30] MEDS: KETOROLAC 15 MG/ML VIAL (*BKC) IV PUSH (10:55)
[2024-03-30] MEDS: ACETAMINOPHEN 500 MG TABLET 1000 MG PO (10:55)
[2024-03-30] MEDS: LACTATED RINGERS 1,000 ML 30 ML IV CONT ×2 (10:55→14:10)
[2024-03-30] MEDS: ceFAZolin 2 GM/D5W 50 ML 2 GM/50 ML BAG IVPB (13:28)
[2024-03-30] MEDS: BUPIVACAINE/EPINEPHRINE 0.5% 50 ML VIAL 40 ML INFILTRATE (13:53)
--- NOTE | 2024-03-30 14:26 | W.PM.PROC2 ---
Procedure Note - Detailed Date of Procedure 03/30/24 Pre-op Diagnosis Fistula in Ano Post-op Diagnosis Same Procedure Performed Anal fistulotomy, removal seton Surgeon Lion Judd MD [employer] Anesthesia General and Local Indications Patient had a recurrent perirectal abscess on February 08. He underwent incision and drainage with placement of a seton. The acute infection has resolved and he is taken back to surgery now for removal of the seton and anal fistulotomy. Findings Intersphincteric fistula Description of Procedure Patient was taken to surgery and induced into general anesthesia. He was placed in prone nakul-knife position. The buttocks were taped apart. Prep and drape was carried out. Seton was grasped and retracted. A probe was easily passed from the external opening into the internal opening. The seton was removed. Using the cautery, anal fistulotomy was performed over the probe. Cautery was used for hemostasis. The curette was used to remove any residual granulation tissue in the fistula tract. Cautery was again used for hemostasis which was good. The wound was lightly packed with Xeroform gauze. Multiple fluffs and Medipore tape were then placed. Patient was returned to a supine position. He was awakened extubated and then transferred to recovery in good condition. Estimated Blood Loss -5 Drains No Packing No Pathology None sent Complications None Condition Stable Disposition PACU [facility] Billing Surgery - Charge Forward: Surgery Billing (Removal seton, anal fistulotomy)
== END 2024-03-30 16:01 | disposition home or self-care (01) ==
PROVIDERS: PCP Family Medicine; Visit Provider Surgery
PROC: (CPT 46030; principal; 2024-03-30 12:00)
DX: K60.52 Anorectal fistula, complex (principal); E78.5 Hyperlipidemia, unspecified; K21.9 Gastro-esophageal reflux disease without esophagitis; G89.18 Other acute postprocedural pain; L40.50 Arthropathic psoriasis, unspecified; L40.8 Other psoriasis; Z79.85 Long-term (current) use of injectable non-insulin antidiabetic drugs; Z79.1 Long term (current) use of non-steroidal anti-inflammatories (NSAID); Z98.890 Other specified postprocedural states; Z87.891 Personal history of nicotine dependence; Z80.52 Family history of malignant neoplasm of bladder
CPT/HCPCS: 46030; A9270; J0330; J0690; J1100; J1885; J2405; J2704; J3010; J7120